=== PATIENT | male | born 1940 | race Caucasian/White ===

== ENCOUNTER → 2018-01-23 | Outpatient (CLI) | payer OTHER ==
[~2018-01-23] MED LIST: ASPI81TA85 PO; CHOL1CAP57 PO; CILO50TA PO; CIPR-255 PO; CYAN1LOZ PO; FINA5TAB4 PO; LISI10TA PO; METFTAB PO; OMEGCAP2 PO
[2018-01-23 13:18] LABS: BLOOD UREA NITROGEN 11 mg/dl (7-18); CALCIUM 9.2 mg/dl (8.5-10.1); CARBON DIOXIDE 26 mmol/L (21-32); CREATININE 0.86 mg/dl (0.60-1.40); GLUCOSE 133 mg/dl (70-99); SODIUM 138 mmol/L (136-145)
== END | disposition home or self-care (01) ==
LOC: C.LABMFLN 10:17
PROVIDERS: ATTEND Family Medicine
DX: E11.9 Type 2 diabetes mellitus without complications (principal); M19.90 Unspecified osteoarthritis, unspecified site